=== PATIENT | female | born 1990 | race Caucasian/White ===

== ENCOUNTER 2016-11-03 09:10 | Emergency (ER) | payer SELFPAY ==
[~2016-11-03] VITALS: Ht 167.6 cm; Wt 99.8 kg
[~2016-11-03 09:10] MED LIST: NOMEDS XX; ZOLOFT 50MG TAB50 MG PO
--- NOTE | 2016-11-03 09:38 | [facility]gent Treatment Center Report ---
History of Present Issue Date/Time Seen by Provider 11/03/16 0937 Visit Reason Pt arrived:Walked Presenting Problem:SORE THROAT AND H/A THAT STARTED TUESDAY Location if Accident: Onset of symptoms date/time:/ or onset unknown for:MEDICAL HX UNKNOWN Have you (or family members/close friends) recently traveled outside the [place]? N If Yes, where/when: Have you had exposure to infectious disease within the past month? TB? Other? Specify: c/o sore throat since Tuesday. Denies fever, aches, chills. "I think strep throat ". No sick contacts. No treatment prior to arrival. Source patient Exam Limitations no limitations ALLERGIES Coded Allergies: No Known Allergies (02/07/15) Home Medications Reported Medications Sertraline Hcl (Zoloft 50MG) 25 MG PO DAILY History Medical History General CAD? No Angina: No CO: No Hypertension? No Hyperlipidemia? No CHF? No DVT? No PE? No COPD? No Asthma? Yes Anemia? No GERD? No Gastric ulcers? No GI Bleed? No Hernia? No Thyroid Problems? No Hypothyroidism? No CVA? No Seizures? No Diabetes? No Renal Insuffiency? No UTI? No Stones? No BPH? No GB Disease: Yes Nephritic Syndrome? No Asplenia? No Hepatitis? No Sickle Cell Disease? No Arthritis? No Migraines? No Cataracts? No Glaucoma? No MRSA? No HIV? No TB? No Anxiety? No Depression? Yes Cancer? No Immunization HX DT/Tetanus 1-4 Years Ago Surgical Hx Previous Surgery?Y [place] Social History Smoking Hx Smoker: Never Smoker Tobacco: No Alcohol Alcohol: Yes Review of Systems All Other Systems Reviewed and Negative Constitutional see HPI Eyes denies drainage ENT denies: ear pain, nose discharge, nose congestion, throat swelling. Respiratory denies cough Gastrointestinal denies no symptoms reported Musculoskeletal denies other (no aches) Skin denies rash Psychiatric/Neurological headache (mild ) Physical Exam Vital Signs Vital Signs Date Time Temp Pulse Resp B/P Pulse O2 O2 Flow FiO2 Ox Delivery Rate 11/03 1007 97.8 91 20 125/76 96 11/03 0931 97.8 91 20 125/76 96 General Appearance normal appearance, no apparent distress Eye Exam - bilateral eye normal exam Ear, Nose, Throat pharyngeal erythema, tonsillar exudate, tonsillar swelling (2- 3+), satlin TMs, EACs and nares normal Neck non-tender, supple Respiratory Status No: respiratory distress, productive cough, non productive cough. Lung Sounds anterior: lungs clear. posterior: lungs clear. bilateral: lungs clear. Cardiovascular regular rate/rhythm, no peripheral edema, no murmur Neurologic alert, oriented x 3 Mental status normal mood/affect Skin normal color, warm/dry Lymphatic no adenopathy Medical Decision Making LABS/Meds/Orders Pt receiving controlled substance in ED? No Results/Orders Laboratory Tests 11/03/16 0930: Group A Strep Screen DETECTED Orders Procedure Date/time Status [facility] STREP SCREEN 11/03 930 Complete Departure Departure Time of Disposition 1004 Disposition DC Home or Self Care(routine) Clinical Impression Primary Impression: Strep throat Condition STABLE Referrals NO REFERRAL IMMEDIATELY for new or worsening symptoms OR no noticeable improvement over the next 24-48 hours. 911 for difficulty breathing or swallowing Patient Instructions DI for Strep Throat Additional Instructions * Start antibiotic CASA and be sure to take as ordered for the FULL length of time although you should start to feel better in 24-48 hours. * change toothbrush and toothpaste 24-48 hours after starting antibiotic * Monitor Temp. Tylenol every 4 hours as needed and/or ibuprofen every 6 hours as needed (as long as your primary care doctor has told you that it is ok to take both) for fever/aches/pain. ER if fever no less than 101 despite tylenol and Ibuprofen * Encourage fluids, water, gatorade, powerade, pedialyte if /toddler/child * cold fluids, popsicles, ice cream feel good * you are contagious until you have taken the antibiotic for 24 hours. No school tomorrow. * Avoid kissing anyone, including parents. No eating or drinking after anyone. You are contagious. Discharge Counseling Counseled pt/family regarding diagnosis, test results, medications/RX, home care, follow up needs Prescriptions Current Visit Scripts AMOXICILLIN (Amoxicillin 875MG Tab) 875 MG PO BID #20 TAB at 1028
[2016-11-03] MEDS ORDERED: AMOXICILLIN875 MG PO (10:05)
[2016-11-03 10:07] VITALS: BP 125/76
== END 2016-11-03 10:08 | disposition home or self-care (01) ==
LOC: UTC 09:10
DX: J02.0 Streptococcal pharyngitis (principal); J45.909 Unspecified asthma, uncomplicated